=== PATIENT | female | born 1985 | race Caucasian/White ===

== ENCOUNTER 2018-07-13 11:47 | Emergency (ER) | payer MEDICAID ==
[~2018-07-13] VITALS: Ht 162.6 cm; Wt 52.6 kg
[2018-07-13 11:55] VITALS: BP 147/94
== END 2018-07-13 14:53 | disposition home or self-care (01) ==
LOC: EDBD 11:47 → ER 11:47
DX: N76.4 Abscess of vulva (principal); F17.210 Nicotine dependence, cigarettes, uncomplicated; F12.10 Cannabis abuse, uncomplicated; E07.89 Other specified disorders of thyroid

== ENCOUNTER 2018-07-16 09:03 | Emergency (ER) | payer MEDICAID ==
[~2018-07-16] VITALS: Ht 149.9 cm; Wt 52.6 kg
[2018-07-16] MEDS ORDERED: LIDOCAINE 1% (LOCAL ANESTH.) PF 5ml SDV ONE (12:15)
[2018-07-16] MEDS ORDERED: LIDOCAINE 1% HCL (LOCAL ANESTH.) INJ 20ML MDV IJ ONE (12:15)
[2018-07-16 12:45] VITALS: BP 136/88
== END 2018-07-16 12:51 | disposition home or self-care (01) ==
LOC: ER 09:03
DX: N75.1 Abscess of Bartholin's gland (principal)
CPT/HCPCS: 56420

== ENCOUNTER 2018-11-08 08:56 | Emergency (ER) | payer MEDICAID ==
[~2018-11-08] VITALS: Ht 149.9 cm; Wt 55.3 kg
[2018-11-08 09:03] VITALS: BP 124/71
[2018-11-08] MEDS ORDERED: KETOROLAC TROMETH 30 MG/ML 1ML VIAL IM ONE (10:00)
== END 2018-11-08 10:09 | disposition home or self-care (01) ==
LOC: ER 08:56
DX: N75.0 Cyst of Bartholin's gland (principal); E07.9 Disorder of thyroid, unspecified